=== PATIENT | female | born 1955 | race Caucasian/White ===

== ENCOUNTER 2019-06-20 10:25 | Outpatient (CLI) | payer OTHER ==
--- NOTE | 2019-06-20 11:01 | RAD ---
EXAM: XR Lumbar Spine Bending Min 4V PROVIDED CLINICAL HISTORY: Back pain COMPARISON: 10/25/2011 FINDINGS: There is right convexity scoliosis of the lumbar spine centered about L1-L2. Sagittal lumbar alignmen t appears normal. No evidence for abnormal translational motion with flexion and extension. Vertebral body heights appear preserved. Disc space narrowing and endplate degenerative changes are s een at L1-2. Bilateral pedicle screws and vertical interconnecting rods are again noted spanning L5-S1, without evidence for hardware loosening or migration. IMPRESSION: Scoliosis with degenerative and postoperative change as described.
== END 2019-06-20 10:26 | disposition home or self-care (01) ==
LOC: TBSIIMAG 10:25
PROVIDERS: ATTEND Neurological Surgery
DX: M54.5 Low back pain (principal); M47.816 Spondylosis without myelopathy or radiculopathy, lumbar region; M41.9 Scoliosis, unspecified; Z98.890 Other specified postprocedural states
CPT/HCPCS: 72120

== ENCOUNTER 2019-07-11 08:28 | Outpatient (CLI) | payer OTHER ==
--- NOTE | 2019-07-11 09:58 | CT ---
LUMBAR SPINE CT WITHOUT CONTRAST: HISTORY: Low back pain, x 9 months. No associated injury. COMPARISON: None. FINDINGS: There are 5 lumbar-type vertebrae. There is mild rightward curvature of the lumbar spine with the ap ex at the L1-L2 disk space. There is vacuum disk phenomenon at L1-L2 with subchondral cyst formation , osteophyte formation, and end plate sclerosis involving the anterior left aspect of the L1-L2 disk space. There are bilateral transpedicular screws at L5 and S1. There is no perihardware lucency. T he right L5 transpedicular screw and left S1 transpedicular screw extend beyond the margin of the lai tebral body. There is atherosclerosis of a nonaneurysmal aorta. There is symmetric attenuation of the paraspinal muscles. Visualized solid organs are unremarkable. There are bilateral pars defects at L5 with associated 0.7 cm of anterolisthesis of L5 upon S1. There is a prominent thecal sac at the S1 and S2 level suggesting extensive Tarlov cyst. Findings ar e similar to a lumbar spine MRI performed on 01/25/2011. There is evidence of bony remodeling suggest ing a longstanding process. Limited evaluation of the contents of the central spinal canal and neural foramen due to technique. T12-L1: No significant central canal stenosis or significant neural foraminal narrowing. L1-L2: Disk desiccation with severe loss of disk space height. No significant central canal stenosi s. Mild bilateral neural foraminal narrowing due to disk material. L2-L3: No significant central canal stenosis or significant neural foraminal narrowing. L3-L4: Minimal broad-based disk bulge, minimal ligamentum flavum thickening, and facet hypertrophy r esult in minimal central canal stenosis. Right neural foramen is patent. Mild left neural foraminal narrowing due to disk material. L4-L5: Imaging evaluation due to beam-attenuation artifact. There is a left hemilaminotomy defect. No evidence of high-grade central canal stenosis. Mild bilateral neural foraminal narrowing. L5-S1: Limited evaluation due to beam-attenuation artifact. Posterior decompression laminectomy is identified. There is no significant central canal stenosis. Patent bilateral neural foramina. IMPRESSION: 1. Grade I anterolisthesis of L5 upon S1 with associated pars defects. 2. Lumbosacral fusion changes as described above. 3. Hypoattenuation involving the central spinal canal at the sacrum. There is associated bony remod eling suggesting longstanding cystic changes, likely associated with Tarlov cyst. POS: [facility]ET
== END 2019-07-11 08:29 | disposition home or self-care (01) ==
LOC: TBSIIMAG 08:28
PROVIDERS: ATTEND Neurological Surgery
DX: M54.5 Low back pain (principal); M43.17 Spondylolisthesis, lumbosacral region; R93.7 Abnormal findings on diagnostic imaging of other parts of musculoskeletal system; Z98.1 Arthrodesis status
CPT/HCPCS: 72131